=== PATIENT | female | born 1955 | race Two or more races ===

== ENCOUNTER 2018-11-09 18:48 | Emergency (ER) | payer OTHER ==
[~2018-11-09] VITALS: Ht 160 cm; Wt 64.9 kg
[2018-11-09] MEDS ORDERED: LORazepam 2MG/ML-1ML VIAL IM ONE ×2 (19:15→19:45)
[2018-11-09 19:43] LABS: Hematocrit 39.8 % (36.0-46.0); Hemoglobin 13.1 g/dL (12.2-16.2); Mean Corpuscular Hemoglobin 29.4 pg (28.0-32.0); Mean Corpuscular Hgb Conc. 32.9 g/dL (32.0-36.0); Mean Corpuscular Volume 89.5 fL (80.0-100.0); Platelet Count (auto) 245 10^3/uL (140-450); Red Blood Cells 4.44 10^6/uL (4.0-5.20); Red Cell Distribution Width 14.8 % (11.8-14.3); White Blood Cell 12.4 10^3/uL (4.4-10.8)
[2018-11-09 19:50] LABS: Albumin 3.6 g/dL (3.4-5.0); BUN/Creatinine Ratio 24.4; Calcium 9.4 mg/dL (8.5-10.1); Potassium 4.2 mmol/L (3.5-5.1)
[2018-11-09 19:52] LABS: Bilirubin, Total 0.2 mg/dL (0.2-1.0); Total Protein 8.6 g/dL (6.4-8.2)
[2018-11-09 20:10] LABS: Band Neutrophils % (manual) 0; Basophils % (manual) 0 (0.0-2.0); Blast Cells 0; Metamyelocytes % 0; Myelocytes % 0; Promyelocytes % 0; Reactive Lymphocytes 0
[2018-11-09] MEDS ORDERED: LEVETIRACETAM INJ 1,000 MG in D5W 5% 100 ML IV ONE (20:30)
[2018-11-09 21:08] LABS: Eosinophils % (manual) 1 (0-7); Lymphocytes % (manual) 43 (10.0-50.0); Monocytes % (manual) 5 (0-12)
[2018-11-09] MEDS ORDERED: ACETAMINOPHEN 500 MG TAB PO ONE (21:30)
[2018-11-10 04:10] VITALS: BP 106/66
== END 2018-11-10 05:26 | disposition home or self-care (01) ==
LOC: EDBD 18:48 → ER 18:56
DX: G40.909 Epilepsy, unspecified, not intractable, without status epilepticus (principal); S16.1XXA Strain of muscle, fascia and tendon at neck level, initial encounter; J32.9 Chronic sinusitis, unspecified; D72.829 Elevated white blood cell count, unspecified; E78.5 Hyperlipidemia, unspecified; I10 Essential (primary) hypertension; Z86.73 Personal history of transient ischemic attack (TIA), and cerebral infarction without residual deficits; W22.8XXA Striking against or struck by other objects, initial encounter; Y93.89 Activity, other specified; Y92.89 Other specified places as the place of occurrence of the external cause; Y99.8 Other external cause status
CPT/HCPCS: 36415; 70450; 70486; 72125; 80053; 85007; 85027; 96365; 96372; 99284; J1953; J7060

== ENCOUNTER 2021-05-25 14:17 | Inpatient (IN) | payer OTHER ==
[~2021-05-25] VITALS: Ht 154.9 cm; Wt 54.4 kg
[2021-05-25] MEDS ORDERED: SODIUM CHLORIDE 0.9% 500 ML IVB ONE (14:30)
[2021-05-25 19:24] LABS: Basophils # (auto) 0 10 ^3/uL (0-0.2); Basophils % (auto) 0.4 % (0.0-2.0); Eosinophils # (auto) 0.2 10 ^3/uL (0-0.8); Eosinophils % (auto) 2.8 % (0.0-7.0); Hematocrit 33.7 % (36.0-46.0); Hemoglobin 10.8 g/dL (12.2-16.2); Lymphocytes # (auto) 2.9 10 ^3/uL (0.4-5.4); Lymphocytes % (auto) 35.3 % (10.0-50.0); Mean Corpuscular Hemoglobin 28.5 pg (28.0-32.0); Mean Corpuscular Volume 89.1 fL (80.0-100.0); Monocytes # (auto) 0.7 10 ^3/uL (0-1.3); Monocytes % (auto) 8.6 % (0.0-12.0); Neutrophils # (auto) 4.4 10 ^3/uL (1.6-8.6); Neutrophils % (auto) 52.9 % (37.0-80.0); Nucleated Red Blood Cells % 0.1 %; Red Blood Cells 3.78 10^6/uL (4.0-5.20); Red Cell Distribution Width 14.5 % (11.8-14.3); White Blood Cell 8.3 10^3/uL (4.4-10.8)
[2021-05-25 19:39] LABS: Potassium 3.6 mmol/L (3.5-5.1)
[2021-05-25 19:45] LABS: Albumin 2.7 g/dL (3.4-5.0); BUN/Creatinine Ratio 22.2; Bilirubin, Total 0.2 mg/dL (0.2-1.0); Calcium 8.3 mg/dL (8.5-10.1); Total Protein 7.6 g/dL (6.4-8.2)
[2021-05-25 20:44] LABS: Urine Bacteria NONE SEEN /hpf (None Seen); Urine Blood 1+ /uL (Negative); Urine Mucus FEW (None Seen); Urine Specific Gravity 1.016 (1.001-1.035); Urine WBC 606 /hpf (0 - 5); Urine WBC Clumps PRESENT /hpf (None Seen)
[2021-05-25] MEDS ORDERED: methylPREDNISolone SOD SUCC 125 MG/2 ML VL IV ONE (21:45)
[2021-05-25] MEDS ORDERED: cefTRIAXone 1GM/50ML D5W 50 ML IV ONE (21:45)
[2021-05-26] MEDS ORDERED: DOCUSATE SOD 100 MG CAP PO PRN (03:45)
[2021-05-26] MEDS ORDERED: ACETAMINOPHEN 500 MG TAB PO PRN (03:45)
[2021-05-26] MEDS: SODIUM CHLORIDE 0.9% 1,000 ML IV SCH ×2 (04:28→20:25)
[2021-05-26 05:19] LABS: Basophils # (auto) 0 10 ^3/uL (0-0.2); Basophils % (auto) 0.2 % (0.0-2.0); Eosinophils # (auto) 0 10 ^3/uL (0-0.8); Eosinophils % (auto) 0.1 % (0.0-7.0); Hematocrit 38.3 % (36.0-46.0); Hemoglobin 12.7 g/dL (12.2-16.2); Lymphocytes # (auto) 1.2 10 ^3/uL (0.4-5.4); Mean Corpuscular Hemoglobin 29.4 pg (28.0-32.0); Mean Corpuscular Hgb Conc. 33.1 g/dL (32.0-36.0); Mean Corpuscular Volume 88.7 fL (80.0-100.0); Monocytes # (auto) 0.1 10 ^3/uL (0-1.3); Monocytes % (auto) 0.9 % (0.0-12.0); Neutrophils # (auto) 9.7 10 ^3/uL (1.6-8.6); Neutrophils % (auto) 87.8 % (37.0-80.0); Nucleated Red Blood Cells % 0.1 %; Red Blood Cells 4.32 10^6/uL (4.0-5.20); Red Cell Distribution Width 14.4 % (11.8-14.3)
[2021-05-26 05:41] LABS: Calcium 9.3 mg/dL (8.5-10.1); Magnesium 2.5 mg/dL (1.6-2.6); Potassium 3.7 mmol/L (3.5-5.1)
[2021-05-26 05:45] LABS: Bilirubin, Total 0.3 mg/dL (0.2-1.0); Total Protein 8.6 g/dL (6.4-8.2)
[2021-05-26] MEDS ORDERED: MORPHINE SULFATE INJECTION 2 MG/ML SYRG IV PRN (05:45)
[2021-05-26] MEDS ORDERED: NITROGLYCERIN 0.4 MG SL TAB SL PRN (05:45)
[2021-05-26] MEDS: LORazepam 2MG/ML-1ML VIAL IV PRN (08:19)
[2021-05-26] MEDS ORDERED: METOPROLOL TARTRATE 25 MG TAB PO SCH (10:00)
[2021-05-26] MEDS: cefTRIAXone 1GM/50ML D5W 50 ML IV SCH (10:57)
[2021-05-26] MEDS: DexAMETHasone SOD PHOS 10MG/1ML VIAL INJ IV SCH (10:57)
[2021-05-26] MEDS: FAMOTIDINE (10MG/ML) 2ML VL IV SCH ×2 (10:57→20:53)
[2021-05-26] MEDS: ZINC SULFATE 220mg CAP or TAB PO SCH (10:58)
[2021-05-26] MEDS: levETIRAcetam 500 MG TAB PO SCH ×2 (10:58→20:54)
[2021-05-26] MEDS: ASCORBIC ACID 1,000 MG TAB PO SCH (11:08)
[2021-05-26] MEDS: MULTIPLE VITAMIN TAB PO SCH (11:08)
[2021-05-26] MEDS: CHOLECALCIFEROL (VITD3) 2,000 UNIT CAP/TAB PO SCH (11:09)
[2021-05-26] MEDS: ENOXAPARIN SOD 40 MG/0.4 ML SYRINGE SC SCH (11:09)
[2021-05-26] MEDS: BUDESONIDE (INHALATION) 180 MCG IH IN SCH ×2 (12:07→21:31)
[2021-05-26] MEDS: AZITHROMYCIN 500MG/ 250ML 250 ML IV SCH (12:26)
[2021-05-26] MEDS: HYDROcodone-ACET 5/325MG TAB PO PRN ×2 (14:34→20:55)
[2021-05-26 16:44] VITALS: BP 160/104
[2021-05-26] MEDS: hydrALAZINE HCL 20 MG/ML VL IV PRN (16:59)
[2021-05-26 17:00] VITALS: BP 160/104
[2021-05-26] MEDS: METOPROLOL TARTRATE 25 MG TAB PO SCH (20:55)
[2021-05-26] MEDS: ALBUTEROL SULF HFA 90MCG INH 200DOSE IN PRN (21:35)
[2021-05-26 22:00] VITALS: BP 143/100
[2021-05-27] MEDS: hydrALAZINE HCL 20 MG/ML VL IV PRN ×3 (00:39→21:03)
[2021-05-27 05:00] VITALS: BP 149/94
[2021-05-27] MEDS: ONDANSETRON HCL 4 MG/2 ML VIAL IV PRN ×3 (05:35→21:03)
[2021-05-27 05:53] LABS: Basophils # (auto) 0 10 ^3/uL (0-0.2); Basophils % (auto) 0.3 % (0.0-2.0); Eosinophils # (auto) 0 10 ^3/uL (0-0.8); Eosinophils % (auto) 0.2 % (0.0-7.0); Hematocrit 36.1 % (36.0-46.0); Lymphocytes # (auto) 3.1 10 ^3/uL (0.4-5.4); Mean Corpuscular Hemoglobin 29.1 pg (28.0-32.0); Mean Corpuscular Hgb Conc. 33.2 g/dL (32.0-36.0); Mean Corpuscular Volume 87.8 fL (80.0-100.0); Monocytes # (auto) 1.3 10 ^3/uL (0-1.3); Monocytes % (auto) 9.1 % (0.0-12.0); Neutrophils # (auto) 9.8 10 ^3/uL (1.6-8.6); Neutrophils % (auto) 68.4 % (37.0-80.0); Nucleated Red Blood Cells % 0.2 %; Red Blood Cells 4.11 10^6/uL (4.0-5.20); Red Cell Distribution Width 14.2 % (11.8-14.3); White Blood Cell 14.3 10^3/uL (4.4-10.8)
[2021-05-27 06:02] LABS: Potassium 3.4 mmol/L (3.5-5.1)
[2021-05-27 06:12] LABS: Albumin 3.2 g/dL (3.4-5.0); BUN/Creatinine Ratio 15.9; Bilirubin, Total 0.3 mg/dL (0.2-1.0); Calcium 9.3 mg/dL (8.5-10.1)
[2021-05-27] MEDS: BUDESONIDE (INHALATION) 180 MCG IH IN SCH ×2 (07:19→21:35)
[2021-05-27] MEDS: ALBUTEROL SULF HFA 90MCG INH 200DOSE IN PRN ×2 (07:19→21:35)
[2021-05-27 08:00] VITALS: BP 156/83
[2021-05-27] MEDS: DexAMETHasone SOD PHOS 10MG/1ML VIAL INJ IV SCH (09:01)
[2021-05-27] MEDS: cefTRIAXone 1GM/50ML D5W 50 ML IV SCH (09:01)
[2021-05-27] MEDS: levETIRAcetam 500 MG TAB PO SCH ×2 (09:02→21:02)
[2021-05-27] MEDS: AZITHROMYCIN 500MG/ 250ML 250 ML IV SCH (09:02)
[2021-05-27] MEDS: ZINC SULFATE 220mg CAP or TAB PO SCH (09:02)
[2021-05-27] MEDS: FAMOTIDINE (10MG/ML) 2ML VL IV SCH ×2 (09:02→21:01)
[2021-05-27] MEDS: MULTIPLE VITAMIN TAB PO SCH (09:02)
[2021-05-27] MEDS: ASCORBIC ACID 1,000 MG TAB PO SCH (09:03)
[2021-05-27] MEDS: CHOLECALCIFEROL (VITD3) 2,000 UNIT CAP/TAB PO SCH (09:03)
[2021-05-27] MEDS: ENOXAPARIN SOD 40 MG/0.4 ML SYRINGE SC SCH (09:03)
[2021-05-27] MEDS: METOPROLOL TARTRATE 25 MG TAB PO SCH ×2 (09:22→21:02)
[2021-05-27 12:31] VITALS: BP 141/72
[2021-05-27] MEDS: SODIUM CHLORIDE 0.9% 1,000 ML IV SCH (13:05)
[2021-05-27] MEDS ORDERED: VANCOMYCIN PER PHARMACY 0 MG IV SCH (17:15)
[2021-05-27] MEDS ORDERED: POTASSIUM EFFERVESENT TAB 25 MEQ PO ONE (17:15)
[2021-05-27] MEDS: VANCOMYCIN 750mg/250ml 250 ML IV SCH (18:17)
[2021-05-27 18:58] VITALS: BP 147/86
[2021-05-27] MEDS ORDERED: CLINDAMYCIN 300MG IV 50 ML IV SCH (22:00)
[2021-05-27 22:37] VITALS: BP 178/93
[2021-05-27] MEDS: ACETAMINOPHEN 325 MG TAB PO PRN (23:05)
[2021-05-27] MEDS: LORazepam 2MG/ML-1ML VIAL IV PRN (23:22)
[2021-05-28 05:11] VITALS: BP 135/75
[2021-05-28] MEDS: VANCOMYCIN 750mg/250ml 250 ML IV SCH ×2 (05:17→17:51)
[2021-05-28 05:45] LABS: Basophils # (auto) 0 10 ^3/uL (0-0.2); Basophils % (auto) 0.2 % (0.0-2.0); Eosinophils # (auto) 0 10 ^3/uL (0-0.8); Eosinophils % (auto) 0.1 % (0.0-7.0); Hematocrit 33.7 % (36.0-46.0); Hemoglobin 11.1 g/dL (12.2-16.2); Lymphocytes % (auto) 20.5 % (10.0-50.0); Mean Corpuscular Hemoglobin 28.3 pg (28.0-32.0); Mean Corpuscular Hgb Conc. 32.9 g/dL (32.0-36.0); Monocytes # (auto) 0.9 10 ^3/uL (0-1.3); Monocytes % (auto) 9.5 % (0.0-12.0); Neutrophils # (auto) 6.7 10 ^3/uL (1.6-8.6); Neutrophils % (auto) 69.7 % (37.0-80.0); Nucleated Red Blood Cells % 0.2 %; Red Blood Cells 3.92 10^6/uL (4.0-5.20); Red Cell Distribution Width 13.8 % (11.8-14.3); White Blood Cell 9.7 10^3/uL (4.4-10.8)
[2021-05-28 06:05] LABS: Potassium 3.1 mmol/L (3.5-5.1)
[2021-05-28 06:12] LABS: BUN/Creatinine Ratio 16.1; Calcium 8.5 mg/dL (8.5-10.1)
[2021-05-28] MEDS: ALBUTEROL SULF HFA 90MCG INH 200DOSE IN PRN ×2 (07:05→23:09)
[2021-05-28] MEDS: BUDESONIDE (INHALATION) 180 MCG IH IN SCH ×2 (07:05→23:09)
[2021-05-28 09:00] VITALS: BP 157/114
[2021-05-28] MEDS: cefTRIAXone 1GM/50ML D5W 50 ML IV SCH (10:13)
[2021-05-28] MEDS: ASCORBIC ACID 1,000 MG TAB PO SCH (10:14)
[2021-05-28] MEDS: levETIRAcetam 500 MG TAB PO SCH ×2 (10:14→21:50)
[2021-05-28] MEDS: FAMOTIDINE (10MG/ML) 2ML VL IV SCH ×2 (10:14→21:50)
[2021-05-28] MEDS: CHOLECALCIFEROL (VITD3) 2,000 UNIT CAP/TAB PO SCH (10:14)
[2021-05-28] MEDS: METOPROLOL TARTRATE 25 MG TAB PO SCH ×2 (10:14→21:51)
[2021-05-28] MEDS: MULTIPLE VITAMIN TAB PO SCH (10:14)
[2021-05-28] MEDS: ZINC SULFATE 220mg CAP or TAB PO SCH (10:14)
[2021-05-28] MEDS: ENOXAPARIN SOD 40 MG/0.4 ML SYRINGE SC SCH (10:15)
[2021-05-28] MEDS: ONDANSETRON HCL 4 MG/2 ML VIAL IV PRN ×2 (10:37→15:45)
[2021-05-28] MEDS: hydrALAZINE HCL 20 MG/ML VL IV PRN ×2 (10:37→17:52)
[2021-05-28] MEDS ORDERED: POTASSIUM CHL 20 Meq TABLET PO ONE (12:30)
[2021-05-28 13:00] VITALS: BP 162/99
[2021-05-28] MEDS: SODIUM CHLORIDE 0.9% 1,000 ML IV SCH (16:23)
[2021-05-28 17:00] VITALS: BP 174/98
[2021-05-28] MEDS: HYDROcodone-ACET 5/325MG TAB PO PRN (21:52)
[2021-05-28 22:00] VITALS: BP 137/97
[2021-05-29] MEDS: ALPRAZolam 0.25 MG TAB PO PRN ×2 (01:18→09:27)
[2021-05-29 05:00] VITALS: BP 145/81
[2021-05-29 06:11] LABS: Basophils # (auto) 0 10 ^3/uL (0-0.2); Basophils % (auto) 0.3 % (0.0-2.0); Eosinophils # (auto) 0 10 ^3/uL (0-0.8); Eosinophils % (auto) 0.2 % (0.0-7.0); Hematocrit 33.6 % (36.0-46.0); Hemoglobin 11.5 g/dL (12.2-16.2); Lymphocytes # (auto) 1.6 10 ^3/uL (0.4-5.4); Lymphocytes % (auto) 19.3 % (10.0-50.0); Mean Corpuscular Hemoglobin 29.2 pg (28.0-32.0); Mean Corpuscular Hgb Conc. 34.4 g/dL (32.0-36.0); Mean Corpuscular Volume 84.8 fL (80.0-100.0); Monocytes # (auto) 0.9 10 ^3/uL (0-1.3); Monocytes % (auto) 10.7 % (0.0-12.0); Neutrophils # (auto) 5.9 10 ^3/uL (1.6-8.6); Neutrophils % (auto) 69.5 % (37.0-80.0); Red Blood Cells 3.96 10^6/uL (4.0-5.20); Red Cell Distribution Width 13.8 % (11.8-14.3); White Blood Cell 8.4 10^3/uL (4.4-10.8)
[2021-05-29 06:33] LABS: BUN/Creatinine Ratio 10.7; Calcium 8.3 mg/dL (8.5-10.1); Magnesium 1.8 mg/dL (1.6-2.6); Potassium 3.2 mmol/L (3.5-5.1)
[2021-05-29] MEDS: ALBUTEROL SULF HFA 90MCG INH 200DOSE IN PRN ×2 (08:32→19:07)
[2021-05-29] MEDS: BUDESONIDE (INHALATION) 180 MCG IH IN SCH ×2 (08:33→19:07)
[2021-05-29 09:20] VITALS: BP 155/80
[2021-05-29] MEDS: MULTIPLE VITAMIN TAB PO SCH (09:26)
[2021-05-29] MEDS: levETIRAcetam 500 MG TAB PO SCH ×2 (09:26→21:08)
[2021-05-29] MEDS: METOPROLOL TARTRATE 25 MG TAB PO SCH ×2 (09:26→21:08)
[2021-05-29] MEDS: FAMOTIDINE (10MG/ML) 2ML VL IV SCH ×2 (09:26→21:08)
[2021-05-29] MEDS: ENOXAPARIN SOD 40 MG/0.4 ML SYRINGE SC SCH (09:27)
[2021-05-29] MEDS: ASCORBIC ACID 1,000 MG TAB PO SCH (09:27)
[2021-05-29] MEDS: ZINC SULFATE 220mg CAP or TAB PO SCH (09:27)
[2021-05-29] MEDS: CHOLECALCIFEROL (VITD3) 2,000 UNIT CAP/TAB PO SCH (09:27)
[2021-05-29] MEDS: ONDANSETRON HCL 4 MG/2 ML VIAL IV PRN ×2 (09:28→20:03)
[2021-05-29] MEDS: SODIUM CHLORIDE 0.9% 1,000 ML IV SCH ×2 (09:28→17:29)
[2021-05-29] MEDS: cefTRIAXone 1GM/50ML D5W 50 ML IV SCH (10:12)
[2021-05-29] MEDS: VANCOMYCIN 1GM/250ML 250 ML IV SCH ×3 (10:12→21:20)
[2021-05-29] MEDS ORDERED: POTASSIUM PHOSPHATE 44 MEQ in D5W 5% 250 ML IV ONE (14:15)
[2021-05-29] MEDS: MAGNESIUM SULFATE 1GM/100ML 100 ML IV SCH ×2 (14:56→15:46)
[2021-05-29] MEDS: Glucerna Carbsteady SHAKE Stawberry 8oz PO SCH (17:29)
[2021-05-29 22:00] VITALS: BP 140/83
[2021-05-30] MEDS: ALPRAZolam 0.25 MG TAB PO PRN ×2 (02:58→17:12)
[2021-05-30 05:00] VITALS: BP 152/80
[2021-05-30] MEDS: hydrALAZINE HCL 20 MG/ML VL IV PRN (05:44)
[2021-05-30 06:26] LABS: Basophils # (auto) 0 10 ^3/uL (0-0.2); Basophils % (auto) 0.1 % (0.0-2.0); Eosinophils # (auto) 0 10 ^3/uL (0-0.8); Eosinophils % (auto) 0.4 % (0.0-7.0); Hematocrit 35.1 % (36.0-46.0); Hemoglobin 11.8 g/dL (12.2-16.2); Lymphocytes # (auto) 1.4 10 ^3/uL (0.4-5.4); Lymphocytes % (auto) 12.5 % (10.0-50.0); Mean Corpuscular Hemoglobin 28.8 pg (28.0-32.0); Mean Corpuscular Hgb Conc. 33.7 g/dL (32.0-36.0); Mean Corpuscular Volume 85.5 fL (80.0-100.0); Monocytes # (auto) 0.9 10 ^3/uL (0-1.3); Monocytes % (auto) 8.2 % (0.0-12.0); Neutrophils # (auto) 8.9 10 ^3/uL (1.6-8.6); Neutrophils % (auto) 78.8 % (37.0-80.0); Nucleated Red Blood Cells % 0.1 %; Red Blood Cells 4.11 10^6/uL (4.0-5.20); Red Cell Distribution Width 13.6 % (11.8-14.3); White Blood Cell 11.3 10^3/uL (4.4-10.8)
[2021-05-30 06:35] LABS: Calcium 8.2 mg/dL (8.5-10.1); Phosphorus 2.2 mg/dL (2.5-4.90)
[2021-05-30 06:45] LABS: Potassium 2.9 mmol/L (3.5-5.1)
[2021-05-30] MEDS: SODIUM CHLORIDE 0.9% 1,000 ML IV SCH (06:45)
[2021-05-30 07:00] VITALS: BP 160/73
[2021-05-30] MEDS ORDERED: POTASSIUM CHL 20 Meq TABLET PO ONE (07:15)
[2021-05-30] MEDS: BUDESONIDE (INHALATION) 180 MCG IH IN SCH (08:37)
[2021-05-30] MEDS: ALBUTEROL SULF HFA 90MCG INH 200DOSE IN PRN (08:37)
[2021-05-30] MEDS: levETIRAcetam 500 MG TAB PO SCH ×2 (10:00→21:20)
[2021-05-30] MEDS: CHOLECALCIFEROL (VITD3) 2,000 UNIT CAP/TAB PO SCH (10:12)
[2021-05-30] MEDS: METOPROLOL TARTRATE 25 MG TAB PO SCH ×2 (10:13→21:20)
[2021-05-30] MEDS: MULTIPLE VITAMIN TAB PO SCH (10:13)
[2021-05-30] MEDS: ENOXAPARIN SOD 40 MG/0.4 ML SYRINGE SC SCH (10:13)
[2021-05-30] MEDS: ASCORBIC ACID 1,000 MG TAB PO SCH (10:13)
[2021-05-30] MEDS: ZINC SULFATE 220mg CAP or TAB PO SCH (10:13)
[2021-05-30] MEDS: cefTRIAXone 1GM/50ML D5W 50 ML IV SCH (10:14)
[2021-05-30] MEDS: FAMOTIDINE (10MG/ML) 2ML VL IV SCH (10:14)
[2021-05-30] MEDS ORDERED: POTASSIUM PHOSPHATE 44 MEQ in D5W 5% 250 ML IV ONE (10:15)
[2021-05-30] MEDS: VANCOMYCIN 1GM/250ML 250 ML IV SCH (10:30)
[2021-05-30] MEDS: Glucerna Carbsteady SHAKE Stawberry 8oz PO SCH ×2 (10:30→17:12)
[2021-05-30] MEDS ORDERED: amLODIPine BESYLATE 5 MG TAB PO ONE (11:45)
[2021-05-30 12:00] VITALS: BP 137/78
[2021-05-30 17:13] VITALS: BP 148/76
[2021-05-30 21:25] VITALS: BP 128/81
[2021-05-31] MEDS: VANCOMYCIN 1GM/250ML 250 ML IV SCH ×3 (01:39→18:09)
[2021-05-31 05:00] VITALS: BP 150/81
[2021-05-31 07:43] LABS: Basophils # (auto) 0 10 ^3/uL (0-0.2); Basophils % (auto) 0.4 % (0.0-2.0); Eosinophils # (auto) 0.1 10 ^3/uL (0-0.8); Eosinophils % (auto) 0.6 % (0.0-7.0); Hemoglobin 12.5 g/dL (12.2-16.2); Lymphocytes # (auto) 1.8 10 ^3/uL (0.4-5.4); Lymphocytes % (auto) 17.6 % (10.0-50.0); Mean Corpuscular Hemoglobin 29.3 pg (28.0-32.0); Mean Corpuscular Hgb Conc. 33.8 g/dL (32.0-36.0); Mean Corpuscular Volume 86.6 fL (80.0-100.0); Monocytes # (auto) 0.9 10 ^3/uL (0-1.3); Monocytes % (auto) 8.7 % (0.0-12.0); Neutrophils # (auto) 7.6 10 ^3/uL (1.6-8.6); Neutrophils % (auto) 72.7 % (37.0-80.0); Nucleated Red Blood Cells % 0.1 %; Red Blood Cells 4.27 10^6/uL (4.0-5.20); Red Cell Distribution Width 14.2 % (11.8-14.3); White Blood Cell 10.4 10^3/uL (4.4-10.8)
[2021-05-31] MEDS: Glucerna Carbsteady SHAKE Stawberry 8oz PO SCH ×2 (08:00→17:52)
[2021-05-31 09:00] VITALS: BP 168/87
[2021-05-31] MEDS: ZINC SULFATE 220mg CAP or TAB PO SCH ×2 (09:42→10:00)
[2021-05-31] MEDS: levETIRAcetam 500 MG TAB PO SCH ×2 (09:42→21:25)
[2021-05-31] MEDS: cefTRIAXone 1GM/50ML D5W 50 ML IV SCH (09:42)
[2021-05-31] MEDS: ENOXAPARIN SOD 40 MG/0.4 ML SYRINGE SC SCH ×2 (09:43→09:46)
[2021-05-31] MEDS: CHOLECALCIFEROL (VITD3) 2,000 UNIT CAP/TAB PO SCH ×2 (09:43→10:00)
[2021-05-31] MEDS: ASCORBIC ACID 1,000 MG TAB PO SCH ×2 (09:43→10:00)
[2021-05-31] MEDS: MULTIPLE VITAMIN TAB PO SCH ×2 (09:43→10:00)
[2021-05-31] MEDS: ALPRAZolam 0.25 MG TAB PO PRN ×2 (09:46→18:14)
[2021-05-31] MEDS: METOPROLOL TARTRATE 25 MG TAB PO SCH ×3 (09:47→13:09)
[2021-05-31] MEDS: amLODIPine BESYLATE 5 MG TAB PO SCH (09:48)
[2021-05-31] MEDS ORDERED: POTASSIUM CHLORIDE 20 MEQ, LIDOCAINE 1% (LOCAL ANESTH.) 2 ML in SODIUM CHL 0.9% 100 ML IV ONE (10:15)
[2021-05-31] MEDS ORDERED: fentaNYL CITRATE 100 MCG/2 ML VL ONE (10:58)
[2021-05-31] MEDS ORDERED: MIDAZOLAM HCL 2MG/2ML 2ml VIAL (1mg/ml) ONE (10:58)
[2021-05-31] MEDS ORDERED: MEPERIDINE HCL (50 MG/ML) 1 ML VIAL ONE (10:58)
[2021-05-31] MEDS ORDERED: PROPOFOL 10 MG/ML 20 ML IV ONE (11:21)
[2021-05-31] MEDS ORDERED: DexAMETHasone SOD PHOS 10MG/1ML VIAL INJ ONE (11:21)
[2021-05-31 21:32] VITALS: BP 118/67
[2021-06-01 05:00] VITALS: BP 151/75
[2021-06-01] MEDS: Glucerna Carbsteady SHAKE Stawberry 8oz PO SCH ×2 (08:00→17:56)
[2021-06-01] MEDS: ALPRAZolam 0.25 MG TAB PO PRN ×2 (08:30→16:15)
[2021-06-01] MEDS: cefTRIAXone 1GM/50ML D5W 50 ML IV SCH (08:30)
[2021-06-01 09:14] VITALS: BP 126/70
[2021-06-01 09:32] LABS: Urine Bacteria FEW /hpf (None Seen); Urine Blood 1+ /uL (Negative); Urine Hyaline Cast FEW /lpf (0 - 2); Urine Mucus FEW (None Seen); Urine Specific Gravity 1.008 (1.001-1.035); Urine WBC 44 /hpf (0 - 5); Urine WBC Clumps PRESENT /hpf (None Seen)
[2021-06-01] MEDS ORDERED: PROMETHAZINE HCL 25 MG/ML 1ML IV ONE (10:15)
[2021-06-01] MEDS ORDERED: SODIUM CHLORIDE 0.9% 1,000 ML IV ONE (10:15)
[2021-06-01 10:24] LABS: Potassium 3.7 mmol/L (3.5-5.1)
[2021-06-01 10:29] LABS: Magnesium 1.8 mg/dL (1.6-2.6); Phosphorus 1.7 mg/dL (2.5-4.90)
[2021-06-01] MEDS: levETIRAcetam 500 MG TAB PO SCH ×2 (10:57→21:35)
[2021-06-01] MEDS: VANCOMYCIN 1GM/250ML 250 ML IV SCH ×2 (10:57→21:36)
[2021-06-01] MEDS: amLODIPine BESYLATE 5 MG TAB PO SCH (10:58)
[2021-06-01] MEDS: MULTIPLE VITAMIN TAB PO SCH (10:58)
[2021-06-01] MEDS ORDERED: POTASSIUM PHOSPHATE 44 MEQ in D5W 5% 250 ML IV ONE (12:00)
[2021-06-01] MEDS: MAGNESIUM SULFATE 1GM/100ML 100 ML IV SCH ×2 (12:12→14:13)
[2021-06-01 12:42] VITALS: BP 137/79
[2021-06-01] MEDS: ACETAMINOPHEN 325 MG TAB PO PRN (20:21)
[2021-06-01] MEDS: METOPROLOL TARTRATE 25 MG TAB PO SCH (21:35)
[2021-06-01 22:00] VITALS: BP 139/75
[2021-06-02] MEDS: LORazepam 2MG/ML-1ML VIAL IV PRN ×2 (00:53→16:40)
[2021-06-02 05:00] VITALS: BP 139/87
[2021-06-02] MEDS: VANCOMYCIN 1GM/250ML 250 ML IV SCH ×2 (07:09→16:41)
[2021-06-02] MEDS: Glucerna Carbsteady SHAKE Stawberry 8oz PO SCH ×2 (08:18→17:36)
[2021-06-02] MEDS: cefTRIAXone 1GM/50ML D5W 50 ML IV SCH (09:11)
[2021-06-02 09:13] VITALS: BP 159/87
[2021-06-02] MEDS: METOPROLOL TARTRATE 25 MG TAB PO SCH ×2 (10:13→22:18)
[2021-06-02] MEDS: amLODIPine BESYLATE 5 MG TAB PO SCH (10:13)
[2021-06-02] MEDS: levETIRAcetam 500 MG TAB PO SCH ×2 (10:13→22:19)
[2021-06-02] MEDS: MULTIPLE VITAMIN TAB PO SCH (10:13)
[2021-06-02 12:22] LABS: Basophils # (auto) 0.1 10 ^3/uL (0-0.2); Basophils % (auto) 0.5 % (0.0-2.0); Eosinophils # (auto) 0 10 ^3/uL (0-0.8); Eosinophils % (auto) 0.3 % (0.0-7.0); Hematocrit 37.9 % (36.0-46.0); Hemoglobin 12.4 g/dL (12.2-16.2); Lymphocytes # (auto) 1.3 10 ^3/uL (0.4-5.4); Lymphocytes % (auto) 10.1 % (10.0-50.0); Mean Corpuscular Hemoglobin 28.9 pg (28.0-32.0); Mean Corpuscular Hgb Conc. 32.9 g/dL (32.0-36.0); Mean Corpuscular Volume 87.8 fL (80.0-100.0); Monocytes # (auto) 1.6 10 ^3/uL (0-1.3); Monocytes % (auto) 12.4 % (0.0-12.0); Neutrophils # (auto) 9.8 10 ^3/uL (1.6-8.6); Neutrophils % (auto) 76.7 % (37.0-80.0); Red Blood Cells 4.31 10^6/uL (4.0-5.20); Red Cell Distribution Width 14.6 % (11.8-14.3); White Blood Cell 12.7 10^3/uL (4.4-10.8)
[2021-06-02 12:44] LABS: BUN/Creatinine Ratio 10.7; Calcium 8.6 mg/dL (8.5-10.1); Potassium 3.4 mmol/L (3.5-5.1)
[2021-06-02 13:00] VITALS: BP 146/78
[2021-06-02] MEDS: hydrALAZINE HCL 20 MG/ML VL IV PRN (16:41)
[2021-06-02 16:58] VITALS: BP 170/88
[2021-06-02 22:00] VITALS: BP 120/73
[2021-06-02] MEDS ORDERED: ZOLPIDEM TARTRATE 5 MG TAB PO ONE (22:00)
[2021-06-02] MEDS: ACETAMINOPHEN 325 MG TAB PO PRN (22:18)
[2021-06-03 05:00] VITALS: BP 127/83
[2021-06-03 06:39] LABS: Basophils # (auto) 0.1 10 ^3/uL (0-0.2); Basophils % (auto) 0.6 % (0.0-2.0); Eosinophils # (auto) 0.1 10 ^3/uL (0-0.8); Eosinophils % (auto) 0.8 % (0.0-7.0); Hematocrit 36.5 % (36.0-46.0); Lymphocytes # (auto) 2.6 10 ^3/uL (0.4-5.4); Lymphocytes % (auto) 16.8 % (10.0-50.0); Mean Corpuscular Hemoglobin 28.7 pg (28.0-32.0); Mean Corpuscular Hgb Conc. 32.8 g/dL (32.0-36.0); Mean Corpuscular Volume 87.3 fL (80.0-100.0); Monocytes # (auto) 1.9 10 ^3/uL (0-1.3); Monocytes % (auto) 12.7 % (0.0-12.0); Neutrophils # (auto) 10.5 10 ^3/uL (1.6-8.6); Neutrophils % (auto) 69.1 % (37.0-80.0); Red Blood Cells 4.18 10^6/uL (4.0-5.20); Red Cell Distribution Width 14.9 % (11.8-14.3); White Blood Cell 15.2 10^3/uL (4.4-10.8)
[2021-06-03 06:59] LABS: BUN/Creatinine Ratio 17.2; Calcium 8.6 mg/dL (8.5-10.1); Potassium 3.7 mmol/L (3.5-5.1)
[2021-06-03] MEDS: Glucerna Carbsteady SHAKE Stawberry 8oz PO SCH ×2 (07:48→18:08)
[2021-06-03] MEDS: cefTRIAXone 1GM/50ML D5W 50 ML IV SCH (09:13)
[2021-06-03] MEDS: METOPROLOL TARTRATE 25 MG TAB PO SCH ×2 (09:55→22:14)
[2021-06-03] MEDS: levETIRAcetam 500 MG TAB PO SCH ×2 (09:55→22:13)
[2021-06-03] MEDS: amLODIPine BESYLATE 5 MG TAB PO SCH (09:56)
[2021-06-03] MEDS: MULTIPLE VITAMIN TAB PO SCH (09:56)
[2021-06-03] MEDS: ALPRAZolam 0.25 MG TAB PO PRN ×2 (09:56→22:17)
[2021-06-03] MEDS: DOXYCYCLINE 100MG/250ML 250 ML IV SCH ×2 (11:26→22:14)
[2021-06-03 22:00] VITALS: BP 136/70
[2021-06-04 05:00] VITALS: BP 154/75
[2021-06-04] MEDS: Glucerna Carbsteady SHAKE Stawberry 8oz PO SCH ×2 (07:55→17:44)
[2021-06-04 09:00] VITALS: BP 135/74
[2021-06-04] MEDS: DOXYCYCLINE 100MG/250ML 250 ML IV SCH ×2 (09:17→21:44)
[2021-06-04] MEDS: levETIRAcetam 500 MG TAB PO SCH ×2 (09:18→12:00)
[2021-06-04] MEDS: MULTIPLE VITAMIN TAB PO SCH (09:18)
[2021-06-04] MEDS: METOPROLOL TARTRATE 25 MG TAB PO SCH ×2 (09:19→21:42)
[2021-06-04] MEDS: amLODIPine BESYLATE 5 MG TAB PO SCH (09:20)
[2021-06-04] MEDS: ALPRAZolam 0.25 MG TAB PO PRN ×2 (12:00→21:42)
[2021-06-04 13:00] VITALS: BP 142/75
[2021-06-04 17:00] VITALS: BP 143/76
[2021-06-04] MEDS ORDERED: ATORVASTATIN 20 MG TAB PO ONE (19:45)
[2021-06-04 20:27] LABS: Cholesterol 133 mg/dL (< 200)
[2021-06-04 20:29] LABS: HDL Cholesterol 57 mg/dL (40-59); LDL Cholesterol 51 mg/dL (< 100); Triglycerides 83 mg/dL (< 150)
[2021-06-04 22:00] VITALS: BP 137/77
[2021-06-05 06:56] LABS: Basophils # (auto) 0.1 10 ^3/uL (0-0.2); Basophils % (auto) 0.8 % (0.0-2.0); Eosinophils # (auto) 0.2 10 ^3/uL (0-0.8); Eosinophils % (auto) 1.4 % (0.0-7.0); Hematocrit 41.3 % (36.0-46.0); Hemoglobin 13.5 g/dL (12.2-16.2); Lymphocytes # (auto) 2.3 10 ^3/uL (0.4-5.4); Lymphocytes % (auto) 19.4 % (10.0-50.0); Mean Corpuscular Hemoglobin 28.7 pg (28.0-32.0); Mean Corpuscular Hgb Conc. 32.7 g/dL (32.0-36.0); Mean Corpuscular Volume 87.7 fL (80.0-100.0); Monocytes # (auto) 1.1 10 ^3/uL (0-1.3); Monocytes % (auto) 8.9 % (0.0-12.0); Neutrophils # (auto) 8.2 10 ^3/uL (1.6-8.6); Neutrophils % (auto) 69.5 % (37.0-80.0); Red Blood Cells 4.71 10^6/uL (4.0-5.20); Red Cell Distribution Width 14.4 % (11.8-14.3); White Blood Cell 11.8 10^3/uL (4.4-10.8)
[2021-06-05 07:23] LABS: Chloride 98 mmol/L (98-107); Sodium 131 mmol/L (136-145)
[2021-06-05 07:26] LABS: Anion Gap 12 (5-15); BUN/Creatinine Ratio 13.3; Blood Urea Nitrogen 11 mg/dL (7-18); Carbon Dioxide 21 mmol/L (21-32); GFR African American 88 mL/min; GFR Non-African American 73 mL/min; Glucose 95 mg/dL (74-106)
[2021-06-05 08:00] VITALS: BP 140/73
[2021-06-05] MEDS: Glucerna Carbsteady SHAKE Stawberry 8oz PO SCH (08:00)
[2021-06-05 09:35] LABS: Calcium < 6.0 mg/dL (8.5-10.1); Potassium 6.5 mmol/L (3.5-5.1)
[2021-06-05] MEDS: MULTIPLE VITAMIN TAB PO SCH (09:37)
[2021-06-05] MEDS: METOPROLOL TARTRATE 25 MG TAB PO SCH (09:38)
[2021-06-05] MEDS: DOXYCYCLINE 100MG/250ML 250 ML IV SCH (09:40)
[2021-06-05] MEDS: amLODIPine BESYLATE 5 MG TAB PO SCH (09:40)
[2021-06-05] MEDS ORDERED: levETIRAcetam 500 MG TAB PO SCH (10:00)
[2021-06-05] MEDS ORDERED: ASPirin-EC 81 mg tab PO SCH (10:00)
[2021-06-05 10:56] LABS: Albumin 2.9 g/dL (3.4-5.0); Calcium 9.5 mg/dL (8.5-10.1)
[2021-06-05] MEDS ORDERED: LEVE500T32 PO (12:05)
[2021-06-05] MEDS ORDERED: DOXY-340 PO (12:05)
[2021-06-05 13:00] VITALS: BP 117/82
[2021-06-05 16:27] VITALS: BP 140/73
== END 2021-06-05 20:05 | disposition hospice, home (50) | DRG 693 ==
LOC: ER 14:17 → EDBD 14:17 → EDUNIT# 14:17 → OVERFLOW 14:18 → EAST 05-26 16:02 → WEST WING 05-29 08:56
PROVIDERS: ADMIT Nurse Practitioner Family; ATTEND Internal Medicine
PROC: 0TCB8ZZ Extirpation of Matter from Bladder, Via Natural or Artificial Opening Endoscopic (ICD-10-PCS; principal; 2021-05-31 11:06)
DX: N21.0 Calculus in bladder (principal); U07.1 COVID-19; E43 Unspecified severe protein-calorie malnutrition; N30.01 Acute cystitis with hematuria; E87.1 Hypo-osmolality and hyponatremia; I69.354 Hemiplegia and hemiparesis following cerebral infarction affecting left non-dominant side; D64.9 Anemia, unspecified; I10 Essential (primary) hypertension; F03.90 Unspecified dementia, unspecified severity, without behavioral disturbance, psychotic disturbance, mood disturbance, and anxiety; N20.0 Calculus of kidney; E78.5 Hyperlipidemia, unspecified; E87.6 Hypokalemia; K21.9 Gastro-esophageal reflux disease without esophagitis; E83.39 Other disorders of phosphorus metabolism; G40.909 Epilepsy, unspecified, not intractable, without status epilepticus; F41.9 Anxiety disorder, unspecified; E86.0 Dehydration; Z68.22 Body mass index [BMI] 22.0-22.9, adult; Z79.82 Long term (current) use of aspirin; Z79.899 Other long term (current) drug therapy; Z83.3 Family history of diabetes mellitus
CPT/HCPCS: 36415; 71045; 74018; 74176; 80048; 80053; 80061; 80202; 81001; 82040; 82150; 82310; 82565; 83605; 83690; 83735; 84100; 84132; 84295; 85025; 85379; 87040; 87077; 87086; 87186; 87205; 87426; 93005; 93306; 94640; 95819; 96361; 96365; 96366; 96368; 96372; 96375; G0378; J0696; J1100; J2001; J2250; J2405; J2704; J3490; J7060